=== PATIENT | male | born 1950 ===

== ENCOUNTER → 2018-08-10 21:29 | Outpatient (REF) | payer OTHER, SELFPAY ==
[2018-08-12 17:37] LABS: Anti Thyroglobulin Antibody < 1 IU/mL (< 2); Thyroid Peroxidase Antibodies 1 IU/mL (< 9)
[2018-08-14 20:28] LABS: Thyroid Stimulating Immunoglob < 89 % baseline (< 140)
== END ==
LOC: LAB 21:29
PROVIDERS: Visit Provider Naturopath
DX: E07.89 Other specified disorders of thyroid (principal); R97.20 Elevated prostate specific antigen [PSA]
CPT/HCPCS: 36415; 84445; 84481; 86376; 86800

== ENCOUNTER → 2018-09-29 22:52 | Outpatient (ROUT) | payer OTHER, SELFPAY ==
[2018-09-29 23:40] LABS: Add Manual Diff / Slide Review NO; Basophils Absolute Auto 100 /uL (0-100); Basophils Percent Auto 1.4 % (0-2); Eosinophils Absolute Auto 100 /uL (0-450); Eosinophils Percent Auto 1.7 % (2-4); Hematocrit 41.3 % (41-53); Lymphocytes Absolute Auto 1700 /uL (1100-4500); Mean Corpuscular HGB Conc 33.8 % (30-36); Mean Corpuscular Hemoglobin 31.7 PG (26-34); Mean Corpuscular Volume 93.8 fL (80-100); Monocytes Absolute Auto 500 /uL (0-900); Monocytes Percent Auto 9.4 % (3-14); Neutrophils Absolute Auto 2700 /uL (1500-7000); Neutrophils Percent Auto 53.5 % (50-75); Platelet Count 298 X10^3/uL (150-400); Red Cell Distribution Width 13.2 % (11.6-14.8)
[2018-09-29 23:48] LABS: Alanine Aminotransferase 29 IU/L (21-72); Albumin 4.4 g/dL (3.5-5.0); Albumin Globulin Ratio 1.8 (1.0-2.8); Alkaline Phosphatase 55 U/L (38-126); Aspartate Aminotransferase 21 IU/L (17-59); BUN Creatinine Ratio 22.2 (6-22); Bilirubin Total 0.6 mg/dL (0.2-1.3); Blood Urea Nitrogen 20 mg/dL (9-20); Calcium 9.9 mg/dL (8.4-10.2); Carbon Dioxide 31 mmol/L (22-32); Chloride 102 mmol/L (98-107); Cholesterol 218 mg/dL (140-199); Estimated Glomerular Filt Rate > 60.0 mL/min (>60); Globulin 2.4 g/dL (1.7-4.1); Glucose 104 mg/dL (80-110); HDL Cholesterol 49 mg/dL (40-60); HEMOLYSIS < 15 (0-50); LDL Cholesterol Calculated 152 mg/dL (<100); Potassium 4.3 mmol/L (3.4-5.1); Sodium 140 mmol/L (137-145); Total Protein 6.8 g/dL (6.3-8.2); Triglycerides 83 mg/dL (35-150)
[2018-09-30 00:04] LABS: T4 Total Thyroxine 7.34 ug/dL (5.5-11.0)
[2018-09-30 00:17] LABS: Thyroid Stimulating Hormone 0.47 uIU/mL (0.47-4.68)
== END ==
PROVIDERS: Visit Provider Naturopath
DX: Z00.00 Encounter for general adult medical examination without abnormal findings (principal); E03.9 Hypothyroidism, unspecified; E55.9 Vitamin D deficiency, unspecified
CPT/HCPCS: 36415; 80053; 80061; 82306; 84153; 84436; 84443; 84481; 85025